=== PATIENT | female | born 1965 | race Caucasian/White ===

== ENCOUNTER 2023-09-07 07:04 | Inpatient (IN) | payer OTHER ==
[~2023-09-07] VITALS: Ht 165.1 cm; Wt 88.0 kg
[2023-09-07] VITALS (7 sets, daily range): BP systolic 123–170; PULSE 69–86; RESP 16–20; TEMP 96.3–97.5; O2SAT 97–100
[2023-09-07 07:56] LABS: BASOPHILS # (AUTO) 0.1 K/uL (0.0-0.2); BASOPHILS % (AUTO) 0.7 % (0.0-2.0); EOSINOPHILS # (AUTO) 0.2 K/uL (0.0-0.4); HEMATOCRIT 36.7 % (36-48); LYMPHOCYTES # (AUTO) 2.1 K/uL (1.0-5.5); LYMPHOCYTES % (AUTO) 29.2 % (20.5-51.5); MEAN CORPUSCULAR HEMOGLOBIN 28 pg (27-31); MEAN CORPUSCULAR HGB CONC 33 % (32-36); MEAN CORPUSCULAR VOLUME 86 fL (79.0-98.0); MONOCYTES # (AUTO) 0.4 K/uL (0.0-1.0); MONOCYTES % (AUTO) 6.2 % (1.7-9.3); NEUTROPHILS # (AUTO) 4.3 K/uL (1.8-7.7); NEUTROPHILS % (AUTO) 60.9 % (40.0-70.0); PLATELET COUNT (AUTO) 495 K/uL (130-430); RED BLOOD CELL COUNT(AUTO) 4.26 MIL/uL (4.2-6.2); RED CELL DISTRIBUTION WIDTH 13.1 % (9.0-15.0)
[2023-09-07] MEDS: NITROGLYCERIN 1 INCH (GM) OINT. TD ONE (07:59)
[2023-09-07 08:21] LABS: ANION GAP 8 (5-15); CALCIUM 9.3 mg/dL (8.4-11.0); CARBON DIOXIDE 28 mmol/L (23-29); CHLORIDE 102 mmol/L (98-107); CREATININE 0.83 mg/dL (0.55-1.30); GFR AFRICAN AMERICAN 91 mL/min (>90); GLUCOSE 189 mg/dL (74-106); POTASSIUM 4.4 mmol/L (3.5-5.1); SODIUM SERUM 138 mmol/L (136-145); UREA NITROGEN, BLOOD 21 mg/dL (8-21)
[2023-09-07 08:24] LABS: GFR NON AFRICAN-AMERICAN 75 mL/min (>90)
[2023-09-07] MEDS: ACETAMINOPHEN 325 MG TABLET PO ONE (09:08)
[2023-09-07] MEDS ORDERED: iohexoL 350 mgI/mL, 100 ML INFUS..BTL IV ONE (09:17)
[2023-09-07] MEDS ORDERED: ONDANSETRON HCL 4 MG/2 ML VIAL IVP PRN (10:00)
[2023-09-07] MEDS ORDERED: HYDROcodone/ACETAMIN 5-325 MG TAB (NORCO/ VICODIN) PO PRN (10:00)
[2023-09-07] MEDS ORDERED: MORPHINE 2 MG/ML INJ. SYRINGE IVP PRN (10:00)
[2023-09-07] MEDS ORDERED: EZET10TA30 PO (10:05)
[2023-09-07] MEDS ORDERED: ASPI-989 PO (10:05)
[2023-09-07] MEDS ORDERED: EMPA10TA PO (10:05)
[2023-09-07] MEDS ORDERED: LOSA1TAB37 PO (10:05)
[2023-09-07] MEDS ORDERED: OMEP20CA15 PO (10:05)
[2023-09-07] MEDS ORDERED: FENO145T24 PO (10:05)
[2023-09-07] MEDS ORDERED: METF-381 PO (10:05)
[2023-09-07] MEDS ORDERED: TRAZ150T77 PO (10:06)
[2023-09-07] MEDS ORDERED: DEXTROSE 50% JECT 50 ML DISP.SYRIN IVP PRN (10:15)
[2023-09-07] MEDS ORDERED: GLUCOSE (DEXTROSE) ORAL GEL -Adults PO PRN (10:15)
[2023-09-07] MEDS ORDERED: D5W 1,000 ML IV PRN (10:15)
[2023-09-07] MEDS: ASPIRIN 81 MG TAB.CHEW PO ONE (10:33)
[2023-09-07] MEDS: HEPARIN SODIUM,PORCINE 5,000 UNITS/ML VIAL SUBCUT ONE ×2 (11:00→13:27)
[2023-09-07] MEDS: NACL 0.9% 1,000 ML IV ONE (12:20)
[2023-09-07] MEDS: ACETAMINOPHEN 325 MG TABLET PO PRN (15:59)
[2023-09-07] MEDS: INSULIN LISPRO SLIDING SCALE 100 UNITS/ML, 3 ML VIAL (humaLOG) SUBCUT PRN (17:47)
[2023-09-07] MEDS: EZETIMIBE 10 MG TABLET PO SCH (20:45)
[2023-09-07] MEDS: HYDROCHLOROTHIAZIDE 12.5 MG CAPSULE (HCTZ) PO SCH (23:07)
[2023-09-07] MEDS: traZODone HCL 50 MG TABLET (DESYREL) PO SCH (23:07)
[2023-09-07] MEDS: LOSARTAN POTASSIUM 50 MG TABLET (COZAAR) PO SCH (23:08)
[2023-09-07] MEDS: HEPARIN SODIUM,PORCINE 5,000 UNITS/ML VIAL SUBCUT SCH (23:10)
[2023-09-08] VITALS (7 sets, daily range): BP systolic 106–117; PULSE 63–93; RESP 16–18; TEMP 97–97.3; O2SAT 95–97
[2023-09-08 06:59] LABS: ALBUMIN 3.2 g/dL (3.4-4.8); CREATININE 0.79 mg/dL (0.55-1.30); PHOSPHORUS 3.5 mg/dL (2.7-4.5); POTASSIUM 3.8 mmol/L (3.5-5.1); TOTAL BILIRUBIN 0.3 mg/dL (0.0-1.0); TOTAL PROTEIN, SERUM 6.7 g/dL (6.4-8.3)
[2023-09-08 07:00] LABS: BASOPHILS # (AUTO) 0.1 K/uL (0.0-0.2); BASOPHILS % (AUTO) 0.8 % (0.0-2.0); EOSINOPHILS # (AUTO) 0.2 K/uL (0.0-0.4); EOSINOPHILS % (AUTO) 3.2 % (0.0-4.0); HEMATOCRIT 35.3 % (36-48); HEMOGLOBIN 11.7 g/dL (12.0-16.0); LYMPHOCYTES # (AUTO) 2.3 K/uL (1.0-5.5); LYMPHOCYTES % (AUTO) 36.3 % (20.5-51.5); MEAN CORPUSCULAR HEMOGLOBIN 28 pg (27-31); MEAN CORPUSCULAR HGB CONC 33 % (32-36); MEAN CORPUSCULAR VOLUME 85 fL (79.0-98.0); MONOCYTES # (AUTO) 0.4 K/uL (0.0-1.0); MONOCYTES % (AUTO) 5.7 % (1.7-9.3); NEUTROPHILS # (AUTO) 3.4 K/uL (1.8-7.7); PLATELET COUNT (AUTO) 481 K/uL (130-430); RED BLOOD CELL COUNT(AUTO) 4.13 MIL/uL (4.2-6.2); RED CELL DISTRIBUTION WIDTH 13.5 % (9.0-15.0); WHITE BLOOD COUNT (AUTO) 6.3 K/uL (4.8-10.8)
[2023-09-08] MEDS: PANTOPRAZOLE SODIUM 40 MG TAB PO SCH (09:32)
[2023-09-08] MEDS: EMPAGLIFLOZIN 10 MG TABLET PO SCH (09:32)
[2023-09-08] MEDS: ASPIRIN 81 MG TAB.CHEW PO SCH (09:32)
[2023-09-08] MEDS ORDERED: ASPIRIN 325 MG TABLET PO SCH (10:00)
[2023-09-08] MEDS: ACETAMINOPHEN 325 MG TABLET PO PRN (13:12)
[2023-09-08 13:47] LABS: CHOLESTEROL 189 mg/dL (<200); HDL CHOLESTEROL 48 mg/dL (>55); TRIGLYCERIDES 152 mg/dL (30-150)
[2023-09-09] VITALS: BP_SYST 123; PULSE 78; RESP 18; TEMP 97.2; O2SAT 95
[2023-09-09] MEDS ORDERED: FENOFIBRATE PO SCH (09:00)
[2023-09-09] MEDS: FENOFIBRATE PO SCH (09:00)
[2023-09-09 09:33] VITALS: BP_SYST 102; PULSE 72; RESP 16; TEMP 98.4; O2SAT 100
[2023-09-09 09:50] VITALS: O2SAT 100
[2023-09-09 13:32] VITALS: BP_SYST 117; PULSE 75; RESP 18; TEMP 98.5; O2SAT 99
[2023-09-10] MEDS ORDERED: LOSARTAN POTASSIUM 25 MG TABLET PO SCH (09:00)
[2023-09-10] MEDS ORDERED: METOPROLOL SUCCINATE 25 MG TAB.SR.24H (TOPROL XL) PO SCH (09:00)
[2023-09-10] MEDS ORDERED: ATORVASTATIN 20 MG TABLET PO SCH (09:00)
[2023-09-10] MEDS ORDERED: METO25TA3 PO (16:32)
== END 2023-09-09 13:50 | disposition home or self-care (01) | DRG 69 ==
LOC: SED 07:04 → STU 09:53
PROVIDERS: ADMIT Student in an Organized Health Care Education/Training Program; ATTEND Student in an Organized Health Care Education/Training Program
DX: G45.9 Transient cerebral ischemic attack, unspecified (principal); I42.9 Cardiomyopathy, unspecified; E11.40 Type 2 diabetes mellitus with diabetic neuropathy, unspecified; E78.5 Hyperlipidemia, unspecified; E78.00 Pure hypercholesterolemia, unspecified; I10 Essential (primary) hypertension; Z79.899 Other long term (current) drug therapy; Z79.84 Long term (current) use of oral hypoglycemic drugs; Z79.82 Long term (current) use of aspirin; Z88.8 Allergy status to other drugs, medicaments and biological substances
CPT/HCPCS: 36415; 70450-TC; 70551; 71045; 71275; 80048; 80053; 80061; 82948; 83735; 83880; 84100; 84484; 85025; 85379; 93005; 93306; 93880; 93970; 97112-GP; 97116-GP; 99285; G0378; J1644; Q9967